=== PATIENT | male | born 1945 | race Caucasian/White ===

== ENCOUNTER → 2017-07-16 | Outpatient (CLI) | payer OTHER ==
[~2017-07-16] MED LIST: ASPIR 8181 MG PO; BENICAR20 MG PO; LEVAQUIN 500 M500 M2 PO; LIPITOR 20 MG T20 M1 PO
== END ==
LOC: CAT 06:35
DX: I70.0 Atherosclerosis of aorta (principal); I25.10 Atherosclerotic heart disease of native coronary artery without angina pectoris; J98.4 Other disorders of lung; K76.89 Other specified diseases of liver

== ENCOUNTER → 2019-08-17 | Outpatient (CLI) | payer OTHER ==
[~2019-08-17] MED LIST changes: +NORCO 5-325 TA1 EAC1 PO; +SYMBICORT80 MCG/4.1 INH; +VITAMIN D325 MC3 PO
== END ==
LOC: RAD 09:24
DX: J47.9 Bronchiectasis, uncomplicated (principal)

== ENCOUNTER → 2019-08-20 | Day surgery (SDC) | payer OTHER ==
[~2019-08-20] VITALS: Ht 172.7 cm; Wt 88.5 kg
[2019-08-20 15:20] VITALS: BP 118/70
--- NOTE | 2019-08-20 15:31 | O ---
[facility] [place] [address] OPERATIVE REPORT Name: FLY RAUSCH III Room #: REG [facility].#: [id number] Admission: 08/20/19 Attend Phys: Nick Beatty MD Discharge: Date of : 41 Report #: [id number] THIS REPORT FOR: cc: Charles Agosto,Nick Andres MD ~ CC: Charles Zuleta DATE OF SERVICE: 08/20/[address] Nick Beatty and Dr. Charles Agosto. PREOPERATIVE DIAGNOSIS: Left inguinal hernia. POSTOPERATIVE DIAGNOSIS: Left inguinal hernia with a left cord lipoma. PROCEDURE: Left inguinal hernia repair with Prolene hernia system mesh and excision of a left cord lipoma. SURGEON: Nick Beatty MD ANESTHESIA: Local IV sedation. DESCRIPTION OF PROCEDURE: The patient was brought to the operating room and placed on the operative table in the supine position. Sequential compression devices were in place for DVT prophylaxis. There was no indication for preoperative antibiotics. The patient underwent IV sedation. Left inguinal area was prepped and draped in a sterile fashion. Skin and subcutaneous tissue were then infiltrated with 0.5% Marcaine and 1% Xylocaine in a 1:1 mixture. Left inguinal skin incision was then performed using a #10 scalpel blade. Hemostasis was obtained using electrocautery as well as clamps and 2-0 chromic ties. Dissection was carried down through subcutaneous tissue to the external oblique fascia, which was then injected with a local mixture, incised with a knife and opened with the Metzenbaum scissors. The cord was then elevated, dissected free and held into place with a [place] drain. Cremasteric muscle fibers were then split in the direction of their fibers using a clamp and electrocautery. Large cord lipoma was identified, dissected free, clamped, excised and tied with a 2-0 chromic tie and sent as specimen to pathology. A large indirect inguinal hernia sac was identified, dissected free and reduced back through the internal ring. The extended Prolene hernia system mesh was then inserted through the internal ring and the underlay patch was then deployed into the preperitoneal space. The floor was inspected and there was a small opening near the pubic tubercle measuring only about 5 mm with some preperitoneal fat bulging through that area. This was closed using a running [facility] [address] [place] [address] OPERATIVE REPORT Name: FLY RAUSCH III Room #: REG [facility]#: [id number] Admission: 08/20/19 Attend Phys: Nick Beatty MD Discharge: Date of : 41 Report #: [id number] 2-0 Prolene 2-layer Bassini repair. The overlay patch was then deployed in the inguinal canal and it was secured at the pubic tubercle using the same running 2-0 Prolene suture. The mesh was then secured superiorly and at the connector using simple interrupted 2-0 Vicryl sutures. The mesh was split and wrapped around the cord and secured to the inguinal ligament with simple interrupted 2-0 Vicryl suture. The cord was then returned to the canal intact. The external oblique fascia was then closed using a running 2-0 Vicryl suture. The Andie's fascia was then reapproximated using 3 simple interrupted 2-0 chromic sutures and the skin then closed with a running 4-0 subcuticular Vicryl stitch. The wound was then dressed with Mastisol, 1/2-inch Steri-Strips cut in half, Telfa, 4 x 4 gauze, sponge and tape. The patient was then awakened from the IV sedation, taken to the recovery room awake, alert, in good condition. Estimated blood loss was approximately 5 mL. The patient tolerated procedure well. All sponge, lap and instrument counts correct x2. <ELECTRONICALLY SIGNED> By: Nikc Beatty MD 08/20/19 1531 1518 1527 Nick Beatty MD /nt
[2019-08-20 15:39] VITALS: BP 118/70
--- NOTE | 2019-08-20 16:10 | EKG ---
[facility] [place] [address] ELECTROCARDIOGRAM REPORT Name: FLY RAUSCH III Room #: REG [facility] [place]..#: [id number] Admission: 08/20/19 Attend Phys: Nick Beatty MD Discharge: Date of : 41 Report #: [id number] THIS REPORT FOR: cc: Charles Agosto Alan Z. DO Couchonnal, Luis F. MD ~ THIS REPORT FOR: //name// [facility] Test Date: 2019-08-20 Test Time: 12:09:37 Pat Name: FLY RAUSCH Department: Room: Gender: Vp Scientific: TREVOR : 1945 Requested By: Liiga Delgado Order Number: [id number] MD: Raphael Riley Measurements Intervals [place] Rate: 71 P: 15 WY: 176 QRS: 50 QRSD: 91 T: 59 QT: 411 QTc: 447 Interpretive Statements Sinus rhythm Probable left atrial enlargement Abnormal R-wave progression, early transition Compared to ECG 02/24/2014 08:37:24 No significant changes Electronically Signed On 08-20-2019 16:07:55 CDT by Raphael Riley [email or web address] <ELECTRONICALLY SIGNED> By: Raphael Riley MD 08/20/19 1607 1209 1209 Raphael Riley MD /EPI
== END | disposition home or self-care (01) ==
LOC: OR 11:39
DX: K40.90 Unilateral inguinal hernia, without obstruction or gangrene, not specified as recurrent (principal); D17.6 Benign lipomatous neoplasm of spermatic cord; I10 Essential (primary) hypertension; J43.9 Emphysema, unspecified; G47.30 Sleep apnea, unspecified; Z98.890 Other specified postprocedural states; Z79.899 Other long term (current) drug therapy; Z86.73 Personal history of transient ischemic attack (TIA), and cerebral infarction without residual deficits; Z87.891 Personal history of nicotine dependence; Z79.891 Long term (current) use of opiate analgesic; Z85.46 Personal history of malignant neoplasm of prostate; Z88.8 Allergy status to other drugs, medicaments and biological substances
CPT/HCPCS: 50010; 50101; 50386; 50417; 54111; 56524; 56525; 56526; 56528; 62110; 62900; 70005

== ENCOUNTER → 2019-09-10 | Outpatient (CLI) | payer OTHER | LOC: CAT 10:37 | PROVIDERS: ATTEND Internal Medicine Cardiovascular Disease | DX: Z13.6 Encounter for screening for cardiovascular disorders (principal); I25.10 Atherosclerotic heart disease of native coronary artery without angina pectoris; E78.00 Pure hypercholesterolemia, unspecified ==

== ENCOUNTER → 2019-09-10 | Outpatient (CLI) | payer OTHER | LOC: SJCVCIMAG 06:57 | PROVIDERS: ATTEND Internal Medicine Cardiovascular Disease | DX: I35.8 Other nonrheumatic aortic valve disorders (principal); R00.0 Tachycardia, unspecified; I10 Essential (primary) hypertension; E78.00 Pure hypercholesterolemia, unspecified; G47.33 Obstructive sleep apnea (adult) (pediatric); E78.2 Mixed hyperlipidemia; Z78.9 Other specified health status; Z79.899 Other long term (current) drug therapy; Z87.891 Personal history of nicotine dependence ==

== ENCOUNTER → 2019-09-21 | Outpatient (CLI) | payer OTHER ==
[2019-09-21 08:03] VITALS: BP 153/85
--- NOTE | 2019-09-21 09:02 | NUR ---
D/C INSTRUCTIONS GIVEN TO PT WHO VERBALIZED UNDERSTANDING. PT D/C'D AMBULATORY WITH TO CAR.
--- NOTE | 2019-09-23 17:44 | CATHLAB ---
[facility] [place] [address] INVASIVE PROCEDURE REPORT Name: FLY RAUSCH III Room #: REG [facility].#: [id number] Admission: 09/21/19 Attend Phys: Morris Arellano MD, Discharge: Date of : 41 Report #: [id number] THIS REPORT FOR: cc: Charles Agosto,Morris Kerr MD [facility] ~ CC: Charles Arellano DATE OF SERVICE: 09/21/2019 PROCEDURE: Implantable loop recorder. INDICATIONS: Palpitations, presumed atrial fibrillation. DESCRIPTION OF PROCEDURE: The potential benefits and risks of the procedure were discussed at length with the patient who understood. Full written and informed consent was obtained. The left anterior chest was prepped and draped in a sterile fashion. A 1% Xylocaine was used as local anesthetic. A 1 cm incision was made over the left fourth intercostal space with placement of a Medtronic Reveal LINQ device, serial #[id number]. A single bioabsorbable stitch was placed. Thresholds were acceptable. The wound was covered with a sterile bandage. He tolerated the procedure well. This device has a serial #[id number]. IMPRESSION: Successful implantation of a Medtronic Reveal LINQ loop recorder. <ELECTRONICALLY SIGNED> By: Morris Arellano MD, [facility] 09/23/19 1744 [id number] [id number] Morris Arellano MD, FACC /nt
== END | disposition home or self-care (01) ==
LOC: CATH 06:22
PROVIDERS: ATTEND Internal Medicine
DX: R00.2 Palpitations (principal); Z98.890 Other specified postprocedural states; Z79.899 Other long term (current) drug therapy

== ENCOUNTER → 2019-12-23 | Outpatient (CLI) | payer OTHER | LOC: SJCVC 14:51 | PROVIDERS: ATTEND Internal Medicine Cardiovascular Disease | DX: R00.2 Palpitations (principal); I10 Essential (primary) hypertension; E78.00 Pure hypercholesterolemia, unspecified; R00.0 Tachycardia, unspecified; R06.00 Dyspnea, unspecified; G47.33 Obstructive sleep apnea (adult) (pediatric) ==

== ENCOUNTER → 2020-02-01 | Outpatient (CLI) | payer OTHER | LOC: SJCVCIMAG 08:25 | PROVIDERS: ATTEND Internal Medicine Cardiovascular Disease | DX: I11.9 Hypertensive heart disease without heart failure (principal); J44.9 Chronic obstructive pulmonary disease, unspecified; E78.00 Pure hypercholesterolemia, unspecified; Z79.899 Other long term (current) drug therapy ==

== ENCOUNTER → 2020-10-24 | Outpatient (CLI) | payer OTHER | LOC: SJCVCIMAG 08:50 | PROVIDERS: ATTEND Internal Medicine Cardiovascular Disease | DX: M79.89 Other specified soft tissue disorders (principal); I87.2 Venous insufficiency (chronic) (peripheral); M79.604 Pain in right leg; M79.605 Pain in left leg; Z79.899 Other long term (current) drug therapy; Z87.891 Personal history of nicotine dependence ==

== ENCOUNTER → 2020-10-26 | Outpatient (CLI) | payer OTHER | LOC: SJCVC 09:45 | PROVIDERS: ATTEND Nuclear Medicine Nuclear Cardiology | DX: M79.89 Other specified soft tissue disorders (principal); I10 Essential (primary) hypertension; I25.10 Atherosclerotic heart disease of native coronary artery without angina pectoris; E78.00 Pure hypercholesterolemia, unspecified; E78.2 Mixed hyperlipidemia; J44.9 Chronic obstructive pulmonary disease, unspecified; E55.9 Vitamin D deficiency, unspecified; Z90.49 Acquired absence of other specified parts of digestive tract; Z88.8 Allergy status to other drugs, medicaments and biological substances; Z79.899 Other long term (current) drug therapy; Z87.891 Personal history of nicotine dependence ==

== ENCOUNTER → 2020-11-09 | Outpatient (CLI) | payer OTHER | LOC: SJCVC 13:39 | PROVIDERS: ATTEND Internal Medicine Cardiovascular Disease | DX: R00.0 Tachycardia, unspecified (principal); I10 Essential (primary) hypertension; E78.00 Pure hypercholesterolemia, unspecified; R00.2 Palpitations; I87.2 Venous insufficiency (chronic) (peripheral); J44.9 Chronic obstructive pulmonary disease, unspecified; E78.2 Mixed hyperlipidemia; Z79.899 Other long term (current) drug therapy; Z88.8 Allergy status to other drugs, medicaments and biological substances ==